=== PATIENT | female | born 1975 | race Hispanic/Latino ===

== ENCOUNTER 2018-08-12 11:50 | Emergency (ER) | payer BC ==
[2018-08-12 12:25] LABS: BASOPHILS % (AUTO) 0.4 % (0.0-5.0); EOSINOPHILS % (AUTO) 0.4 % (0.0-8.0); HEMATOCRIT 36.7 % (36-48); LYMPHOCYTES % (AUTO) 12.6 % (21.0-51.0); MEAN CORPUSCULAR HEMOGLOBIN 28.7 pg (27.0-33.0); MEAN CORPUSCULAR VOLUME 84.5 fL (79-99); MONOCYTES % (AUTO) 9.1 % (3.0-13.0); NEUTROPHILS % (AUTO) 77.5 % (40.0-77.0); PLATELET COUNT (AUTO) 226 K/uL (130-400); RED BLOOD CELL COUNT(AUTO) 4.35 MIL/uL (4.00-5.50); RED CELL DISTRIBUTION WIDTH 13.3 % (11.0-15.5); WHITE BLOOD COUNT (AUTO) 10.8 K/uL (4.8-10.8)
[2018-08-12 12:26] LABS: APPEARANCE,URINE Clear (CLEAR); BILIRUBIN,URINE Negative (NEGATIVE); COLOR,URINE Yellow (YELLOW); GLUCOSE, URINE (UA) Negative (NEGATIVE); KETONES,URINE Negative (NEGATIVE); LEUKOCYTE ESTERASE ,URINE Trace (NEGATIVE); NITRATE,URINE Negative (NEGATIVE); OCCULT BLOOD,URINE Negative (NEGATIVE); PROTEIN,URINE Negative (NEGATIVE); UROBILINOGEN,URINE 0.2 mg/dL (0.2-1.0)
[2018-08-12 12:28] LABS: HCG,QUAL RESULT NEGATIVE (NEGATIVE)
[2018-08-12 12:34] LABS: BACTERIA,URINE Rare /HPF (None Seen); RBC,URINE 0-1 /HPF (0-1); SQUAMOUS EPITHELIAL CELL,UR Rare /HPF (0-2); WBC,URINE 0-1 /HPF (0-1)
[2018-08-12 12:38] LABS: CREATININE 0.7 mg/dL (0.5-1.5); POTASSIUM 3.1 mmol/L (3.5-5.1)
[2018-08-12 12:42] LABS: AMPHET/METH SCREEN,URINE NEGATIVE (NEGATIVE); BARBITURATE SCREEN, URINE NEGATIVE (NEGATIVE); BENZODIAZEPINES SCREEN,URINE NEGATIVE (NEGATIVE); CANNABINOID SCREEN,URINE NEGATIVE (NEGATIVE); COCAINE SCREEN,URINE NEGATIVE (NEGATIVE); OPIATE SCREEN,URINE NEGATIVE (NEGATIVE); PHENCYCLIDINE SCREEN,URINE NEGATIVE (NEGATIVE)
[2018-08-12 12:43] LABS: ALBUMIN 3.7 g/dL (3.5-5.0); TOTAL PROTEIN, SERUM 7.4 g/dL (6.0-8.3)
[2018-08-12] MEDS ORDERED: POTASSIUM BICARB/CIT AC 25 MEQ TABLET.EFF ONE (13:02)
[2018-08-12] MEDS ORDERED: ONDANSETRON HCL 4 MG/2 ML VIAL ONE (13:02)
[2018-08-12] MEDS ORDERED: KETOROLAC TROMETHAMINE 30MG/ML ONE (13:03)
[2018-08-12] MEDS ORDERED: SODIUM CHLORIDE 0.9% 1000ML 1,000 ML IV ONE (13:04)
[2018-08-12] MEDS ORDERED: CEFTRIAXONE SODIUM 1 GM ONE (14:27)
[2018-08-12] MEDS ORDERED: MORPHINE SULFATE 4 MG/1ML SYG ONE (14:28)
== END 2018-08-12 15:48 | disposition home or self-care (01) ==
LOC: EDH 11:50
DX: K57.32 Diverticulitis of large intestine without perforation or abscess without bleeding (principal); E78.5 Hyperlipidemia, unspecified; I10 Essential (primary) hypertension; E07.9 Disorder of thyroid, unspecified; F32.9 Major depressive disorder, single episode, unspecified; Z98.51 Tubal ligation status; Z90.49 Acquired absence of other specified parts of digestive tract
CPT/HCPCS: 36415; 74176; 80053; 80305; 81001; 81025; 83690; 85025; 96374; 96375; 99285; J0696; J1885; J2270; J2405; J7030

== ENCOUNTER → 2019-04-15 | Outpatient (CLI) | payer OTHER | END | disposition home or self-care (01) | LOC: OIH 12:44 | PROVIDERS: ATTEND Internal Medicine Cardiovascular Disease | DX: Z13.6 Encounter for screening for cardiovascular disorders (principal) | CPT/HCPCS: 75571 ==

== ENCOUNTER → 2019-05-12 | Outpatient (CLI) | payer BC | END | disposition home or self-care (01) | LOC: SHCH 09:53 | PROVIDERS: ATTEND Internal Medicine Cardiovascular Disease | DX: I10 Essential (primary) hypertension (principal); I87.2 Venous insufficiency (chronic) (peripheral) | CPT/HCPCS: 93306; 93356; 93970 ==

== ENCOUNTER 2022-04-15 05:30 | Observation (INO) | payer OTHER ==
[2022-04-10 11:55] LABS: BASOPHILS % (AUTO) 0.5 % (0.0-5.0); EOSINOPHILS % (AUTO) 1.1 % (0.0-8.0); HEMATOCRIT 37.6 % (36-48); MEAN CORPUSCULAR HEMOGLOBIN 28.8 pg (27.0-33.0); MEAN CORPUSCULAR HGB CONC 33.5 g/dL (32.0-36.0); MONOCYTES % (AUTO) 10.3 % (3.0-13.0); NEUTROPHILS % (AUTO) 56.9 % (40.0-77.0); PLATELET COUNT (AUTO) 259 K/uL (130-400); RED BLOOD CELL COUNT(AUTO) 4.37 MIL/uL (4.00-5.50); RED CELL DISTRIBUTION WIDTH 12.8 % (11.0-15.5); WHITE BLOOD COUNT (AUTO) 6.1 K/uL (4.8-10.8)
[2022-04-10 13:05] LABS: APPEARANCE,URINE CLEAR (CLEAR); BILIRUBIN,URINE NEGATIVE (NEGATIVE); COLOR,URINE LIGHT-YELLOW (YELLOW); GLUCOSE, URINE (UA) NEGATIVE (NEGATIVE); KETONES,URINE NEGATIVE (NEGATIVE); LEUKOCYTE ESTERASE ,URINE NEGATIVE Leu/uL (NEGATIVE); NITRATE,URINE NEGATIVE (NEGATIVE); OCCULT BLOOD,URINE NEGATIVE (NEGATIVE); PH,URINE 5.5 (5.0-8.0); PROTEIN,URINE NEGATIVE (NEGATIVE); UROBILINOGEN,URINE 0.2 mg/dL (0.2-1.0)
[2022-04-11] MEDS: CEFAZOLIN SODIUM 2 GM VIAL IVPB SCH (12:30)
[2022-04-14 08:28] VITALS: BP 148/81
[~2022-04-15] VITALS: Ht 157.5 cm; Wt 117.0 kg
[2022-04-15] VITALS (22 sets, daily range): BP systolic 113–147; BP diastolic 37–100
[~2022-04-15 05:30] MED LIST: LEVO125C4 PO; MELO-108 PO; OLME20TA22 PO; TOPI50TA24 PO
[2022-04-15] MEDS ORDERED: LACTATED RINGERS 1000ML 1,000 ML IV ONE ×2 (08:15→13:49)
[2022-04-15] MEDS ORDERED: CEFAZOLIN SODIUM 1 GM VIAL ONE (08:15)
[2022-04-15] MEDS ORDERED: LEVO137C4 PO (08:38)
[2022-04-15] MEDS ORDERED: HYDR12.54 PO (08:38)
[2022-04-15] MEDS ORDERED: TUMERIC CURCUMIN PO (08:38)
[2022-04-15] MEDS ORDERED: BIOT10005 PO (08:38)
[2022-04-15] MEDS ORDERED: IRON1CAP32 PO (08:38)
[2022-04-15] MEDS ORDERED: CHOL500051 PO (08:38)
[2022-04-15] MEDS ORDERED: ACET-2247 PO (08:38)
[2022-04-15] MEDS ORDERED: MAGNESIUM SULFATE 1 GM/2 ML VIAL ONE (08:55)
[2022-04-15] MEDS ORDERED: KETAMINE 50MG/ML SYRINGE 50 MG/ML DISP.SYRIN ONE (08:55)
[2022-04-15] MEDS ORDERED: ROCURONIUM BROMIDE 10MG/1ML 5ML VL ONE (09:58)
[2022-04-15] MEDS ORDERED: MIDAZOLAM HCL 1 MG/ML 2ML VIAL ONE (10:50)
[2022-04-15] MEDS ORDERED: ROCURONIUM 10MG/1ML SYR 10 MG/ML ML ONE (10:50)
[2022-04-15] MEDS ORDERED: PROPOFOL 10 MG/ML 20ML VIAL IV ONE (10:50)
[2022-04-15] MEDS ORDERED: FENTANYL CITRATE PF 50 MCG/1 ML 5ML AMP IV ONE (10:51)
[2022-04-15] MEDS: CEFAZOLIN SODIUM 2 GM VIAL IVPB SCH ×2 (11:08→21:36)
[2022-04-15] MEDS ORDERED: EPHEDRINE SULFATE 50 MG/ML AMPULE ONE (11:45)
[2022-04-15] MEDS ORDERED: GLYCOPYRROLATE 1 MG/5 ML SYRINGE ONE (12:51)
[2022-04-15] MEDS ORDERED: NEOSTIGMINE 5MG/5ML SYR IV ONE (12:52)
[2022-04-15] MEDS ORDERED: FENTANYL CITRATE PF 50 MCG/1 ML 2ML VIAL ONE ×2 (13:21→13:37)
[2022-04-15] MEDS ORDERED: ONDANSETRON 4MG INJ ONE (13:57)
[2022-04-15] MEDS ORDERED: DOCUSATE SODIUM 100 MG CAP PO PRN (16:00)
[2022-04-15] MEDS ORDERED: SIMETHICONE 80 MG TAB.CHEW PO PRN (16:00)
[2022-04-15] MEDS ORDERED: BISACODYL 10 MG SUPP.RECT RC PRN (16:00)
[2022-04-15] MEDS ORDERED: MEPERIDINE-PF 75 MG/ML SYG IM PRN (16:00)
[2022-04-15] MEDS ORDERED: IBUPROFEN 600 MG TABLET PO PRN (16:00)
[2022-04-15] MEDS ORDERED: PROMETHAZINE HCL 25 MG/ML 1ML AMPULE IM PRN ×2 (16:00)
[2022-04-15] MEDS ORDERED: ONDANSETRON 4MG INJ IVP PRN (16:00)
[2022-04-15] MEDS: ACETAMINOPHEN WITH CODEINE 1 TAB TAB PO PRN (20:16)
[2022-04-16] MEDS: ACETAMINOPHEN WITH CODEINE 1 TAB TAB PO PRN ×2 (02:55→08:57)
[2022-04-16 03:26] VITALS: BP 115/79
[2022-04-16 06:16] LABS: HEMATOCRIT 32.1 % (36-48); MEAN CORPUSCULAR HEMOGLOBIN 29.1 pg (27.0-33.0); MEAN CORPUSCULAR HGB CONC 33.6 g/dL (32.0-36.0); MEAN CORPUSCULAR VOLUME 86.5 fL (79-99); RED BLOOD CELL COUNT(AUTO) 3.71 MIL/uL (4.00-5.50); RED CELL DISTRIBUTION WIDTH 12.8 % (11.0-15.5); WHITE BLOOD COUNT (AUTO) 8.6 K/uL (4.8-10.8)
[2022-04-16 07:34] VITALS: BP 123/79
[2022-04-16] MEDS ORDERED: ACETAMINOPHEN WITH CODEINE 1 TAB TAB PO PRN (08:00)
[2022-04-16] MEDS ORDERED: HYDROCODONE/ACETAMINOPHEN 5/325 MG TAB PO PRN (08:00)
[2022-04-16] MEDS ORDERED: IBUPROFEN 800 MG TAB PO PRN (08:00)
[2022-04-16 12:14] VITALS: BP 115/74
== END 2022-04-16 14:30 | disposition home or self-care (01) ==
LOC: DAH 05:30 → WSH 05:31
PROVIDERS: ADMIT Obstetrics & Gynecology; ATTEND Obstetrics & Gynecology
DX: D25.9 Leiomyoma of uterus, unspecified (principal); Z20.822 Contact with and (suspected) exposure to COVID-19; N83.201 Unspecified ovarian cyst, right side; K46.9 Unspecified abdominal hernia without obstruction or gangrene; N73.6 Female pelvic peritoneal adhesions (postinfective); I10 Essential (primary) hypertension; E03.9 Hypothyroidism, unspecified; M06.9 Rheumatoid arthritis, unspecified; N85.2 Hypertrophy of uterus; E66.01 Morbid (severe) obesity due to excess calories; Z79.899 Other long term (current) drug therapy
CPT/HCPCS: 84703; 85025; 86850 ×2; 86900 ×2; 86901 ×2; 87426; 81003; 36415 ×3; 93005; 58552; 57268; 96372; 81025; 85027; A6260; G0378 ×23; J7030; J7120 ×3; A4344; A4215 ×2; J3010 ×3; J0690; J3490 ×4; J2710; J2550; J3475; J2250; J2704; J2405; J2175; A4351; A4649 ×4; C1769 ×2; A4223; A4222; A4221

== ENCOUNTER 2024-07-21 06:05 | Observation (INO) | payer OTHER ==
[2024-07-18 09:10] LABS: BASOPHILS # (AUTO) 0.03 K/uL (0.00-0.20); BASOPHILS % (AUTO) 0.6 % (0.0-5.0); EOSINOPHILS % (AUTO) 1.9 % (0.0-8.0); HEMATOCRIT 35.9 % (36-48); IMMATURE GRANULOCYTE ABSOLUTE 0.01 K/uL (0-1); LYMPHOCYTES # (AUTO) 1.6 K/uL (1.0-4.8); LYMPHOCYTES % (AUTO) 30.9 % (21.0-51.0); MEAN CORPUSCULAR HEMOGLOBIN 29.4 pg (27.0-33.0); MEAN CORPUSCULAR HGB CONC 33.7 g/dL (32.0-36.0); MEAN CORPUSCULAR VOLUME 87.3 fL (79-99); MONOCYTES # (AUTO) 0.6 K/uL (0.1-1.0); NEUTROPHILS # (AUTO) 2.9 K/uL (1.8-7.7); NEUTROPHILS % (AUTO) 54.4 % (40.0-77.0); PLATELET COUNT (AUTO) 244 K/uL (130-400); RED BLOOD CELL COUNT(AUTO) 4.11 MIL/uL (4.00-5.50); WHITE BLOOD COUNT (AUTO) 5.3 K/uL (4.8-10.8)
[2024-07-18 09:11] VITALS: BP 145/97; PULSE 65; RESP 16; TEMP 96.3
[2024-07-18 09:20] LABS: CREATININE 0.7 mg/dL (0.5-1.0); POTASSIUM 4.5 mmol/L (3.5-5.1)
[2024-07-18 09:22] LABS: APPEARANCE,URINE CLEAR (CLEAR); BILIRUBIN,URINE NEGATIVE (NEGATIVE); COLOR,URINE LIGHT-YELLOW (YELLOW); GLUCOSE, URINE (UA) NEGATIVE (NEGATIVE); KETONES,URINE NEGATIVE (NEGATIVE); LEUKOCYTE ESTERASE ,URINE NEGATIVE Leu/uL (NEGATIVE); NITRATE,URINE NEGATIVE (NEGATIVE); OCCULT BLOOD,URINE NEGATIVE (NEGATIVE); PH,URINE 6.5 (5.0-8.0); PROTEIN,URINE NEGATIVE (NEGATIVE); UROBILINOGEN,URINE 0.2 mg/dL (0.2-1.0)
[2024-07-18 09:23] LABS: INR 1.03 (0.85-1.15); PROTHROMBIN TIME 10.9 SEC (9.6-11.6)
[2024-07-18 09:23] LABS: ADD UA MICROSCOPIC NO
--- NOTE | 2024-07-18 09:38 | NUR ---
RE: IS INITIAL IS INITIAL TEACHING DONE BY RT MIGUEL ANGEL DURING PREOP
[~2024-07-21] VITALS: Ht 160 cm; Wt 109.3 kg
[2024-07-21] VITALS (24 sets, daily range): BP systolic 123–152; BP diastolic 72–97; PULSE 60–80; RESP 15–20; TEMP 97.6–98.3; O2SAT 99–100
[~2024-07-21 06:05] MED LIST changes: +ACET-2027 PO; +LEVO100T12 PO; -LEVO125C4 PO; -MELO-108 PO; +OLME-29 PO; -OLME20TA22 PO; +PHEN37.596 PO; -TOPI50TA24 PO
[2024-07-21] MEDS: LACTATED RINGERS 1000ML 1,000 ML IV ONE (06:23)
[2024-07-21] MEDS: GABAPENTIN 300 MG CAPSULE ONE (06:58)
[2024-07-21] MEDS: acetaMINOPHEN 100 ML ONE (06:59)
[2024-07-21] MEDS ORDERED: DULO60CA64 PO (06:59)
[2024-07-21] MEDS: FAMOTIDINE 20MG VIAL IV ONE (06:59)
[2024-07-21] MEDS ORDERED: ROPivacaine 0.5% 5MG/ML 30ML ONE (07:08)
[2024-07-21] MEDS ORDERED: ketaMINE 50MG/ML SYRINGE 50 MG/ML DISP.SYRIN ONE (07:09)
[2024-07-21] MEDS ORDERED: proPOFol 10 MG/ML 20ML VIAL IV ONE (07:14)
[2024-07-21] MEDS ORDERED: LIDOCAINE PF 100MG/5ML (2%) SYRINGE 5ML ONE (07:14)
[2024-07-21] MEDS ORDERED: rocuRONium bROMide 10MG/1ML 5ML VL ONE (07:15)
[2024-07-21] MEDS ORDERED: FENTanyl CITRate PF 50 MCG/1 ML 2ML VIAL ONE (07:15)
[2024-07-21] MEDS: ceFAZolin SODIUM 2 GM VIAL ONE (08:42)
[2024-07-21] MEDS: TRANEXAMIC ACID 1000MG/10ML ONE ×2 (08:54→11:10)
[2024-07-21] MEDS ORDERED: GLYCOPYRROLATE 0.2 MG/ML 5 ML VIAL ONE (09:05)
[2024-07-21] MEDS: ceFAZolin SODIUM 1 GM VIAL ONE (09:09)
[2024-07-21] MEDS: VANCOMYCIN 500MG+NS 100ML 100 ML IV ONE (09:11)
[2024-07-21] MEDS ORDERED: NEOSTIGMINE METHYLSULFATE 1MG/ML IV ONE (10:05)
[2024-07-21] MEDS ORDERED: FERROUS FUMARATE 324 MG TABLET PO PRN (10:30)
[2024-07-21] MEDS ORDERED: PoTASSium chloRIDE 20MEQ/100ML 100 ML IV PRN (10:30)
[2024-07-21] MEDS ORDERED: CYCLOBENZAPRINE HCL 10 MG TABLET PO PRN (10:30)
[2024-07-21] MEDS ORDERED: ondanSETRON 4MG INJ IVP PRN (10:30)
[2024-07-21] MEDS ORDERED: traMADol HCL 50 MG TABLET PO PRN (10:30)
[2024-07-21] MEDS ORDERED: CALCIUM CARB 500MG PO PRN (10:30)
[2024-07-21] MEDS ORDERED: TEMAZepam 15 MG CAPSULE PO PRN (10:30)
[2024-07-21] MEDS: acetaMINOPHEN 500 MG TABLET PO SCH (10:30)
[2024-07-21] MEDS ORDERED: OXYcodONE HCL 5 MG TAB PO PRN (10:30)
[2024-07-21] MEDS ORDERED: DiphenhydrAMINE HCL 50 MG/ML VIAL IVP PRN (10:30)
[2024-07-21] MEDS ORDERED: PoTASSium chl 10% ELIXIR 20MEQ 20 MEQ/15 ML UDCUP PO PRN (10:30)
[2024-07-21] MEDS ORDERED: phenylEPHRINE HCL 10 MG/ML 1ML VIAL IV ONE (10:31)
--- NOTE | 2024-07-21 10:34 | OP ---
Operative Note: DATE OF PROCEDURE: 07/21/24 SURGEON: DHIRAJ SILVERMAN MD EXHAUST EMISSIONS AUTOMOTIVE TECHNICIAN: [Kenny Marie CFA] ANESTHESIA: [General anesthesia plus regional block] ANESTHESIOLOGIST/COURT RECORDER: [Ivone Gee CRNA] PREOPERATIVE DIAGNOSIS: [Right knee osteoarthritis] POSTOPERATIVE DIAGNOSIS: [Right knee osteoarthritis] BIOMET VANGUARD: [Femur right PS is 7.5. Tibia right 67 fixed cruciate. Tibial liner size 12 x 60 3/67 PS. Patella size 31 x 9 asymmetric.] PROCEDURE: [Right total knee arthroplasty] ESTIMATED BLOOD LOSS: [100 mL] INDICATIONS: [Morbidly obese 48-year-old female with history of pain to the right knee secondary to osteoarthritis that has a longer responded to conservative treatment. The patient is brought to the operating room for a right total knee arthroplasty, procedure that she understood, risks, benefits possible complications and agreed signed the consent form.] DESCRIPTION OF PROCEDURE: [After adequate general anesthesia was achieved and regional block obtained the right lower extremity was prepped and draped in the usual manner previous placement of the tourniquet in the proximal thigh. The extremity was then elevated and exsanguinated with an Esmarch bandage and the tourniquet inflated to 250 mmHg the Esmarch band been then removed. With the knee in flexion a longitudinal incision was then made in the anterior aspect through the skin followed by dissection of the subcutaneous tissue. A bone infusion needle was then inserted just medial to the tibial tuberosity and through this needle we proceeded to inject into the metaphysis a solution of 50 mL of normal saline mixed with 500 mg of vancomycin. After this the bone needle was removed. A paramedian approach was then made with the Bovie cautery cutting through the quadriceps tendon, medial patellar retinaculum and patellar tendon retinaculum. The retropatellar tendon fat was then excised and the soft tissue elements of the tibia were elevated subperiosteally and retractors were applied medially and laterally. The anterior and posterior cruciate ligaments were resected. With the use of a drill a starting hole was made in the distal femur entering the intramedullary canal and then after removal of the drill an intramedullary guide was inserted with a 5 degree valgus block that touched the distal femur and to this the distal femoral cutting guide was then applied anteriorly and was secured to the distal femur with the use of pins. The intramedullary guide was then removed and with the use of the oscillating saw we proceeded to resect the distal femur removing the fragments and the guide. The femoral sizer was then applied distally and drill holes were made removing the sizer and the 4-in-1 cutting block was then inserted and the anterior, posterior and chamfer cuts were made removing the fragments and the block. The posterior cruciate ligament retractor was then inserted posterior to the tibia and this was brought forward proceeding then to apply the external tibial alignment guide and secured the proximal cutting guide to the tibia with the use of pins. With the use of the oscillating saw the proximal cut to the tibia tibia was made. The bone fragment was removed and the trial tibia plate was chosen. At this point the menisci were removed sharply and with the use of the curved osteotome the posterior osteophytes of the femur were removed. The PS cutting guide was then inserted and the intercondylar cut was made removing the fragment and the guide. The trial components were then inserted at the femur and tibia with a trial tibial liner bringing the knee into extension noticing that the patient had a very stable knee in flexion, extension and with valgus and varus stress. The knee was maintained in extension and the patella was then addressed proceeding to measure its thickness and then with the use of the oscillating saw we removed 9 mm from the articular surface and restored the height with application of a trial component after 3 peg holes were made. The patellofemoral ligament was removed and then the patellofemoral tracking was checked noticing to be lateralized and for this reason a lateral release was performed being in the tracking back to normal. At this moment all the components were removed, the tibia after the metaphyseal defect was created and while cement was being mixed on the back table we proceeded to irrigate the joint with antibiotic solution and then cover the entry to the femoral canal with a bone plug. Once the cement was ready we proceeded to apply it first to the tibia surface inserting the final component and then to the femoral surface and inserted the final component removing the excess cement and then applying a trial liner bringing the knee into extension for compression. Then we proceeded to irrigate the patella surface and dried it applying then bone cement and the final patellar component was inserted and was secured with application of a clamp. The joint was irrigated with a warm diluted Betadine solution while the cement dried followed by irrigation with antibiotic solution. The trial liner was removed as well as the patellar clamp and we proceeded then to irrigate the posterior aspect of the joint to remove all the remaining debris and the final tibial liner was inserted and locked against the tibia . The range of motion w as checked and noticed to be adequate with full extension and flexion, no laxity in valgus or varus stress and with adequate patellofemoral tracking. The patient had no anterior or posterior drawer. After further irrigation the tourniquet was deflated and hemostasis was obtained. The wound was closed with approximation of the quadriceps tendon, patellar retinaculum and patellar tendon retinaculum with #1 Vicryl close stitches alternating with #1 Ethibond stitches. Closure of the subcutaneous tissue with 2-0 Monocryl inverted stitches and the skin was closed with 3-0 Monocryl subcuticularly. The wound was covered with a suction dressing followed by application of an Jared bandage for compression and the drapes were then removed transferring the patient to the hospital bed and taken to recovery room for follow-up by anesthesia. There were no complications during the procedure.] DHIRAJ SILVERMAN MD July 21, 2024 10:34
[2024-07-21] MEDS: morPHINE 2 MG SYG ONE (11:11)
--- NOTE | 2024-07-21 11:45 | NUR ---
Admit Patient admitted to unit to 421. Patient aox4, drowsy, on 2L nc. Patient complaining of heaviness and pain in right knee, 09/15. Dressing CDI, enma intact. Post-op education and room orientation provided. RT notified of admission. PT notified of admission. Family at bedside.
[2024-07-21] MEDS: 0.9%NACL 1000ML 1,000 ML IV SCH (12:20)
[2024-07-21] MEDS: ketOROlac 15MG/ML VIAL (15MG/ML) IV PRN (12:20)
[2024-07-21] MEDS: GABApentin 100 MG CAPSULE PO SCH (14:00)
[2024-07-21] MEDS: OXYcodONE HCL 5 MG TAB PO PRN (14:42)
[2024-07-21] MEDS: ceFAZolin SODIUM 2 GM VIAL IVP SCH (14:43)
--- NOTE | 2024-07-21 15:30 | NUR ---
Attempted PT eval at 1500 patient nauseated and requesting to wait. PT eval started at 1530 patient feeling better and has been medicated for pain. Patient able to complete bed mobility ,sit to stand and weight shifting. Knee buckled several times and patient felt light headed. PT assisted patient back to seated at EOB and given alcohol wipe to sniff, and ice to chew. Pt offered nausea meds but is feeling better again. Pt requests to toilet. PT assisted to BSC and then back to bed after voiding. Pt education provided on pain management, use of call light, not transferring alone, use of ice and use of bed control. DC planning provided. Pt not able to ambulate at this time, due to knee buckling and presyncopal episode. PT will follow in AM.
--- NOTE | 2024-07-21 16:10 | NUR ---
ORTHO COORDINATOR: PHYSICAL THERAPY AT BEDSIDE. TEACHING DEFERRED.
[2024-07-21] MEDS ORDERED: DULOXETINE HCL PO PRN (19:00)
[2024-07-21] MEDS ORDERED: levoTHYROxine 100 MCG TABLET PO SCH (19:30)
[2024-07-21] MEDS ORDERED: duloXETine HCL 30 MG CAP PO PRN (19:30)
[2024-07-21] MEDS: FAMOTIDINE 20MG TAB PO SCH (20:14)
[2024-07-22 03:02] VITALS: BP 136/95; PULSE 66; RESP 16; TEMP 99
[2024-07-22 04:42] LABS: HEMATOCRIT 31.4 % (36-48); MEAN CORPUSCULAR HEMOGLOBIN 29.4 pg (27.0-33.0); MEAN CORPUSCULAR HGB CONC 33.1 g/dL (32.0-36.0); MEAN CORPUSCULAR VOLUME 88.7 fL (79-99); RED BLOOD CELL COUNT(AUTO) 3.54 MIL/uL (4.00-5.50); RED CELL DISTRIBUTION WIDTH 13.2 % (11.0-15.5); WHITE BLOOD COUNT (AUTO) 6.2 K/uL (4.8-10.8)
[2024-07-22 04:55] LABS: CREATININE 0.7 mg/dL (0.5-1.0); POTASSIUM 3.4 mmol/L (3.5-5.1)
[2024-07-22] MEDS: PoTASSium chloRIDE 20MEQ ER 20 MEQ ERTAB PO PRN (05:30)
[2024-07-22] MEDS: levoTHYROxine 100 MCG TABLET PO SCH (06:13)
--- NOTE | 2024-07-22 06:40 | NUR ---
ATTEMPTED TO PLACE PATIENT IN CHAIR PER DR. SILVERMAN ORDERS. PATIENT IS IN TOO MUCH PAIN TO MOVE AND UNABLE TO BEAR PAIN TO MOVE PATIENT TO CHAIR. FOR SAFETY AND FALL PREVENTION, PATIENT WILL REMAIN IN BED UNTIL PAIN IS UNDER CONTROL AND TOLERABLE.
[2024-07-22] MEDS ORDERED: levoTHYROxine 100 MCG TABLET PO SCH (07:30)
[2024-07-22 08:00] VITALS: BP 141/87; PULSE 68; RESP 18; TEMP 98.2; O2SAT 99
--- NOTE | 2024-07-22 08:10 | PN ---
Ortho postop day one. This morning the patient is awake alert and oriented. Reporting mild to moderate pain. No acute distress. The patient is still in bed we discussed trying to spend the majority of her day out of bed and she understood and agreed. Vital signs have been stable. Afebrile. Laboratory results reviewed. Noted to have a slight drop in potassium and this will be covered per protocol. Also drop in hemoglobin hematocrit. Patient is currently asymptomatic we will address per protocol as necessary. Voiding and on her own without difficulty. The Jared bandage is removed and the Picco dressing is intact. Gastrocnemius soft nontender/negative Homans. Operative findings discussed with the patient. Reinforced incentive spirometry. Patient is pending physical therapy this morning. Patient has limited benefits and we will require outpatient physical therapy preferably at the facility on [facility]/ortho physical therapy. Assessment: Status post right total knee arthroplasty. Hypokalemia Acute postoperative blood loss anemia. Plan: Continue Dr. Cho's TKA protocol and discharge planning. Hypokalemia addressed with protocol. Acute postoperative blood loss anemia addressed with protocol Vitals/Labs Vital Signs Date Time Temp Pulse Resp B/P (MAP) Pulse Ox O2 Delivery O2 Flow Rate FiO2 07/22/24 03:02 99.0 66 16 136/95 100 Room Air 07/21/24 20:00 0 21 Laboratory Tests 07/22/24 04:32 Medications Current Medications Cefazolin Sodium 2 gm STK-MED ONCE .ROUTE Last administered on 07/21/24at 08:42; Start 07/21/24 at 06:23; Stop 07/21/24 at 06:25; Status DC Lactated Ringer's 1,000 ml @ As Directed STK-MED ONCE IV; Start 07/21/24 at 06:23; Stop 07/21/24 at 06:25; Status DC Gabapentin 300 mg STK-MED ONCE .ROUTE; Start 07/21/24 at 06:58; Stop 07/21/24 at 07:02; Status DC Acetaminophen 100 ml @ As Directed STK-MED ONCE .ROUTE; Start 07/21/24 at 06:59; Stop 07/21/24 at 07:02; Status DC Famotidine 20 mg STK-MED ONCE IV; Start 07/21/24 at 06:59; Stop 07/21/24 at 07:02; Status DC Ropivacaine 150 mg STK-MED ONCE .ROUTE; Start 07/21/24 at 07:08; Stop 07/21/24 at 07:09; Status DC Ketamine HCl 50 mg STK-MED ONCE .ROUTE; Start 07/21/24 at 07:09; Stop 07/21/24 at 07:09; Status DC Lidocaine HCl 100 mg STK-MED ONCE .ROUTE; Start 07/21/24 at 07:14; Stop 07/21/24 at 07:14; Status DC Propofol 200 mg STK-MED ONCE IV; Start 07/21/24 at 07:14; Stop 07/21/24 at 07:15; Status DC Rocuronium [place] 50 mg STK-MED ONCE .ROUTE; Start 07/21/24 at 07:15; Stop 07/21/24 at 07:15; Status DC Fentanyl Citrate 100 mcg STK-MED ONCE .ROUTE; Start 07/21/24 at 07:15; Stop 07/21/24 at 07:15; Status DC Cefazolin Sodium 1 gm STK-MED ONCE .ROUTE Last administered on 07/21/24at 09:09; Start 07/21/24 at 07:52; Stop 07/21/24 at 07:52; Status DC Vancomycin HCl 100 ml @ As Directed STK-MED ONCE IV Last administered on 07/21/24at 09:11; Start 07/21/24 at 07:52; Stop 07/21/24 at 07:52; Status DC Tranexamic Acid 1,000 mg STK-MED ONCE .ROUTE Last administered on 07/21/24at 08:54; Start 07/21/24 at 08:52; Stop 07/21/24 at 08:52; Status DC Glycopyrrolate 1 mg STK-MED ONCE .ROUTE; Start 07/21/24 at 09:05; Stop 07/21/24 at 09:06; Status DC Neostigmine Methylsulfate 10 mg STK-MED ONCE IV; Start 07/21/24 at 10:05; Stop 07/21/24 at 10:05; Status DC Sodium Chloride 1,000 ml @ 100 mls/hr Q10H IV Last administered on 07/21/24at 20:19; Start 07/21/24 at 10:30; Stop 07/22/24 at 10:29 Polyethylene Glycol 17 gm DAILY PO; Start 07/22/24 at 09:00; Stop 08/21/24 at 08:59 Bisacodyl 10 mg DAILY PRN RC; Start 07/24/24 at 10:30; Stop 08/23/24 at 10:29 Ketorolac Tromethamine 15 mg Q6H PRN IV Last administered on 07/22/24at 06:08; Start 07/21/24 at 10:30; Stop 07/26/24 at 10:29 Famotidine 20 mg BID PO Last administered on 07/21/24at 20:14; Start 07/21/24 at 21:00; Stop 08/20/24 at 20:59 Ferrous Fumarate 324 mg DAILY PRN PO; Start 07/21/24 at 10:30; Stop 08/20/24 at 10:29 Temazepam 15 mg HS PRN PO; Start 07/21/24 at 10:30; Stop 08/20/24 at 10:29 Ondansetron HCl 4 mg Q6H PRN IVP; Start 07/21/24 at 10:30; Stop 08/20/24 at 10:29 Calcium Carbonate 500 mg Q12H PRN PO; Start 07/21/24 at 10:30; Stop 08/20/24 at 10:29 Diphenhydramine HCl 25 mg Q6H PRN IVP; Start 07/21/24 at 10:30; Stop 08/20/24 at 10:29 Cefazolin Sodium 2 gm Q8H IVP Last administered on 07/21/24at 22:30; Start 07/21/24 at 15:30; Stop 07/21/24 at 23:31; Status DC Cyclobenzaprine HCl 5 mg Q8H PRN PO; Start 07/21/24 at 10:30; Stop 08/20/24 at 10:29 Gabapentin 100 mg TID PO Last administered on 07/21/24at 20:14; Start 07/21/24 at 14:00; Stop 08/20/24 at 13:59 Potassium Chloride 100 ml @ 100 mls/hr AD PRN IV; Start 07/21/24 at 10:30; Stop 08/20/24 at 10:29 Potassium Chloride 20 meq AD PRN PO; Start 07/21/24 at 10:30; Stop 08/20/24 at 10:29 Potassium Chloride 20 meq AD PRN PO Last administered on 07/22/24at 05:30; Start 07/21/24 at 10:30; Stop 08/20/24 at 10:29 Oxycodone HCl 5 mg Q4H PRN PO; Start 07/21/24 at 10:30; Stop 07/28/24 at 10:29 Oxycodone HCl 10 mg Q4H PRN PO Last administered on 07/22/24at 04:56; Start 07/21/24 at 10:30; Stop 07/28/24 at 10:29 Tramadol HCl 50 mg Q6H PRN PO; Start 07/21/24 at 10:30; Stop 07/26/24 at 10:29 Acetaminophen 1,000 mg Q8H PO Last administered on 07/22/24at 02:30; Start 07/21/24 at 10:30; Stop 08/20/24 at 10:29 Apixaban 2.5 mg BID PO; Start 07/22/24 at 09:00; Stop 08/21/24 at 08:59 Phenylephrine HCl 10 mg STK-MED ONCE IV; Start 07/21/24 at 10:31; Stop 07/21/24 at 10:31; Status DC Tranexamic Acid 1,000 mg STK-MED ONCE .ROUTE Last administered on 07/21/24at 11:10; Start 07/21/24 at 11:08; Stop 07/21/24 at 11:08; Status DC Morphine Sulfate 2 mg STK-MED ONCE .ROUTE Last administered on 07/21/24at 11:11; Start 07/21/24 at 11:08; Stop 07/21/24 at 11:08; Status DC Levothyroxine Sodium 100 mcg ACBKFST PO; Start 07/22/24 at 07:30; Stop 07/21/24 at 19:22; Status DC Miscellaneous Medication 1 cap DAILY PRN PO; Start 07/21/24 at 19:00; Stop 07/21/24 at 19:05; Status DC Miscellaneous Medication 1 each DAILY PO; Start 07/22/24 at 09:00; Stop 07/21/24 at 19:02; Status DC Losartan Potassium 100 mg DAILY PO; Start 07/22/24 at 09:00; Stop 08/21/24 at 08:59 Hydrochlorothiazide 12.5 mg DAILY PO; Start 07/22/24 at 09:00; Stop 08/21/24 at 08:59 Duloxetine HCl 60 mg DAILY PRN PO; Start 07/21/24 at 19:30; Stop 08/20/24 at 19:29 Levothyroxine Sodium 100 mcg SYN PO; Start 07/21/24 at 19:30; Stop 07/21/24 at 19:29; Status DC Levothyroxine Sodium 100 mcg SYN PO Last administered on 07/22/24at 06:13; Start 07/22/24 at 06:30; Stop 08/21/24 at 06:29 DENEEN CONLEY NP July 22, 2024 08:10
[2024-07-22] MEDS ORDERED: OLMESARTAN PO SCH (09:00)
[2024-07-22] MEDS ORDERED: [UNRECOGNIZED DRUG - OTHER] PO SCH (09:00)
[2024-07-22] MEDS ORDERED: HYDROCHLOROTHIAZIDE PO SCH (09:00)
[2024-07-22] MEDS: polyETHYLene GLYCol 3350 17 GM POWD.PACK PO SCH (09:25)
[2024-07-22] MEDS: APIXaban 2.5 MG TABLET PO SCH (09:26)
[2024-07-22] MEDS: hydroCHLOROthiazide 25 MG TABLET PO SCH (09:26)
[2024-07-22] MEDS: LoSARTan 100 MG TABLET PO SCH (09:27)
--- NOTE | 2024-07-22 11:03 | NUR ---
DC PLAN VISITED WITH PATIENT. PATIENT LIVES WITH SPOUSE. INDEPENDENT ABLE TO PERFORM ADL'S. PATIENT HAS NO SERVICE OR DME'S. FEELS SAFE TO RETURN HOME. [place] [facility] OR [facility] SIGNED. ALSO FOR ANY IN NETWORK DME. ASKED FOR A RAISED COMMODE. EXPLAINED INSURANCE MAY NOT COVER BUT CM WILL SEND REFERRAL. GAVE LOCATIONS OFF WERE CAN LOCATE IF NOT COVERED BY INSURANCE. Addendum: 07/22/24 at 1110 by JOSE L GIBBS RN CM Amended: Links added.
[2024-07-22 12:00] VITALS: BP 147/94; PULSE 72; RESP 18; TEMP 98
[2024-07-22 16:00] VITALS: BP 138/81; PULSE 75; RESP 18; TEMP 98.5
--- NOTE | 2024-07-22 16:14 | NUR ---
DC PLAN PATIENT ACCEPTED TO [facility] [phone]. [facility] SAID NOT IN NETWORK. SENT REFERRAL TO [facility] EMERGENC[facility] DE[facility]MENT. NO ANSWER LEFT VOICE MAIL AND THEN EMAILED [facility] TO CONFIRM THEY RECEIVED. RECEIVED PACKET. SPOKE TO PATIENT. EXPLAINED THAT HOME HEALTH IS SET UP BUT HAVING TROUBLE WITH DME. SAID IF IT DOES NOT GET APPROVED DAD SAID CAN LEND HER WALKER AND WILL HAVE SON BUY 3 IN 1 CHAIR AT [facility]. CM LET NURSE KNOW FO CONVERSATIONS. CM LET MD KNOW OF ACCEPTANCE. Addendum: 07/22/24 at 1647 by JOSE L GIBBS RN CM Amended: Links added.
--- NOTE | 2024-07-22 16:15 | NUR ---
ORTHO COORDINATOR: TEACHING REGARDING DVT AND PNEUMONIA PREVENTION, PAIN EXPECTATIONS AND PAIN MANAGEMENT. PATIENT UP TO CHAIR, FAMILY AT BEDSIDE. INCENTIVE SPIROMETER AT BEDSIDE. PATIENT RETURN DEMONSTRATED PROPER USE OF INCENTIVE SPIROMETER AND FOOT FLEXION AND EXTENSION EXERCISES. PATIENT ABLE TO VERBALIZE FREQUENCY OF USE OF INCENTIVE SPIROMETER. PATIENT REPORTS A PAINFUL NIGHT. REVIEWED NUMERIC PAIN SCORE AND REMINDED PATIENT PAIN MEDICATIONS MUST BE REQUESTED. PATIENT INTENDS TO DISCHARGE HOME WITH HOME HEALTH PHYSICAL THERAPY. ENCOURAGE PATIENT TO PERFORM A SELF PAIN ASSESSMENT EVERY FOUR HOURS AND MEDICATE APPROPRIATELY. PATIENT ENCOURAGED TO CONTINUE TO PREMEDICATE PRIOR TO PHYSICAL THERAPY AND PERIODS OF HIGH ACTIVITY ONCE DISCHARGED. PATIENT ENCOURAGED TO SHOWER TODAY, RATIONALE PROVIDED. REVIEWED PROCESS FOR HOME HEALTH. QUESTIONS ANSWERED. DAVID DRESSING CASSETTE AND INSTRUCTIONS REVIEWED. PATIENT INSTRUCTED TO TAKE EXTRA DRESSING HOME. QUESTIONS ANSWERED. PATIENT AND FAMILY VERBALIZED UNDERSTANDING TO ALL TEACHING. NO ADDITIONAL QUESTIONS/CONCERNS AT THIS TIME.
[2024-07-22 20:00] VITALS: BP 141/89; PULSE 85; RESP 18; TEMP 98.8; O2SAT 100
[2024-07-23] VITALS: BP 144/74; PULSE 81; RESP 18; TEMP 97.6
[2024-07-23 04:00] VITALS: BP 141/72; PULSE 78; RESP 18; TEMP 97.8
[2024-07-23 08:00] VITALS: O2SAT 100
--- NOTE | 2024-07-23 11:19 | NUR ---
cm note spoke to primary nurse Audra, states pt's son has purchased the walker and 3 in 1 already. informed nurse to call report to [facility] at [phone] prior to pt's discharge. verbalizes understanding.
[2024-07-23] MEDS ORDERED: HYDR-4060 PO (12:55)
[2024-07-23] MEDS ORDERED: APIX2.5T PO (12:55)
--- NOTE | 2024-07-23 12:59 | DS ---
DISCHARGE SUMMARY [Date of admission: 07/21/2024 Date of discharge: 07/23/2024 Final diagnosis: Right Knee osteoarthritis Surgical procedures: Right total Knee arthroplasty on 07/21/2024 Summary of History and Physical: The patient is a 48 year-old female with history of severe arthrosis to the right knee that has been present for several years and has been treated conservatively with no longer adequate response to treatment. The patient is being admitted for total knee arthroplasty. Previous medical history: Morbid obesity, hypertension, hypothyroidism Previous surgical history: Family history: Noncontributory Social history: Negative for use of tobacco or alcohol. Allergies: Ibuprofen, naproxen Review of system: Negative on admission Hospital course: The patient was admitted and taken to the operating room for a total knee arthroplasty, procedure that went uneventful. Postoperatively the patient remained hemodynamically stable and afebrile. The patient received antibiotic and anticoagulation prophylaxis as per protocol. The patient was evaluated by physical therapy and started rehabilitation treatment with ambulation with the use of walker, weightbearing as tolerated, range of motion exercises and bed transfers. The patient was also evaluated by case management and arrangements were made for discharge. The patient tolerated diet well. On postop day #2 all the arrangements were completed and the patient was dismissed. Condition on discharge: Good Disposition: The patient will be dismissed home with home health . Follow-up will be done at the office in 3 weeks. The patient is to continue with physical therapy and rehabilitation at home and be ambulatory with the use of a walker, weightbearing as tolerated. Continue taking pain medication as instructed as well as anticoagulation prophylaxis. Continue with home medications also as instructed and continue with pre admission diet.] DHIRAJ SILVERMAN MD ] DHIRAJ SILVERMAN MD July 23, 2024 12:59
--- NOTE | 2024-07-23 14:25 | NUR ---
Discharge 1430 Patient discharged home with home health orders. Attempted to call [facility] home health to give report two times and left messages. No answer and no call back received at this time. Patient aware and knowledgeable regarding follow up appointments and instructions. All vitals are WNL. Patient taken downstairs to personal vehicle via wheelchair. No questions or concerns at this time.
[2024-07-24] MEDS ORDERED: BisaCODYL 10 MG SUPP.RECT RC PRN (10:30)
== END 2024-07-23 14:30 | disposition home health service (06) ==
LOC: DAH 06:05 → DAHIP 06:06 → 4DH 11:45
PROVIDERS: ADMIT Orthopaedic Surgery; ATTEND Orthopaedic Surgery
DX: M17.11 Unilateral primary osteoarthritis, right knee (principal); G89.18 Other acute postprocedural pain; D62 Acute posthemorrhagic anemia; E87.6 Hypokalemia; M25.561 Pain in right knee; E03.9 Hypothyroidism, unspecified; E66.01 Morbid (severe) obesity due to excess calories; I10 Essential (primary) hypertension; Z98.890 Other specified postprocedural states; Z79.899 Other long term (current) drug therapy; Z68.41 Body mass index [BMI] 40.0-44.9, adult
CPT/HCPCS: 80048 ×2; 85025; 85610; 87086; 81003; 36415 ×2; 87641; 27447; 96376 ×2; 96365; 96366; 96375; 64447; 88311; 88304; 97161; 97530 ×8; 85027; 97116 ×4; G0378 ×48; A4663; J7120 ×2; J3490 ×6; J3010; J0690 ×4; J2270; J2003; J2704; J2710; J2795; J1885 ×3; J2371; J3370; A9272; A4649 ×3; A4930 ×4; C1713; C1776; A5120; A4215; A4223 ×2; A4213; A4222; A4221; A4216